=== PATIENT | female | born 1955 ===

== ENCOUNTER 2017-10-18 22:32 | Emergency (ER) | payer OTHER, SELFPAY ==
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
== END 2017-10-19 01:12 | disposition home or self-care (01) ==
LOC: ERS 22:32
DX: M19.041 Primary osteoarthritis, right hand (principal); E11.9 Type 2 diabetes mellitus without complications; V43.62XA Car passenger injured in collision with other type car in traffic accident, initial encounter